=== PATIENT | female | born 2000 | race African-American/Black ===

== ENCOUNTER 2019-12-18 02:50 | Emergency (ER) | payer BC, MEDICAID, SELFPAY ==
[2019-12-18] VITALS (12 sets, daily range): BP systolic 119–153; BP diastolic 70–99; PULSE 90–129; RESP 17–31; TEMP 37.1; O2SAT 98–100
[2019-12-18 03:17] LABS: Basophils Percent Auto 0.6 % (0.2-1.2); Eosinophils Absolute Auto 0.1 K/mm3 (0-0.3); Hematocrit 41.7 % (37.0-47.0); Hemoglobin 13.5 g/dL (12.0-15.0); Lymphocytes Absolute Auto 2.08 K/mm3 (0.9-3.2); Lymphocytes Percent Auto 42.5 % (18.3-44.2); Mean Corpuscular HGB Conc 32.4 g/dl (32-36); Mean Corpuscular Volume 89.5 fl (80-100); Mean Platelet Volume 8.8 fl (7.4-10.4); Monocytes Absolute Auto 0.6 K/mm3 (0.1-0.6); Monocytes Percent Auto 11.9 % (2.6-8.5); Neutrophils Absolute Auto 2.2 K/mm3 (1.3-6.7); Platelet Count Result 302 k/mm3 (150-375); Red Blood Count 4.66 M/mm3 (4.2-5.4); Red Cell Distribution Width 12.6 % (11.5-14.5); White Blood Count 4.9 K/mm3 (4.5-10.0)
[2019-12-18 03:30] LABS: Alanine Aminotransferase 9 U/L (4-35); Albumin Level 4.2 g/dL (3.5-5.1); Alkaline Phosphatase 98 U/L (38-126); Anion Gap 8 mmol/L (8-16); Aspartate Amino Transferase 20 U/L (14-36); Bilirubin,Total 0.3 mg/dL (0.2-1.3); Blood Urea Nitrogen 9 mg/dL (7-17); Calcium 9.3 mg/dL (8.4-10.2); Carbon Dioxide 28 mmol/L (22-30); Chloride 103 mmol/L (98-107); Estimated CRCL calculation 124 ml/min; Estimated Glomerular Filt Rate > 60; Glucose 97 mg/dL (65-105); Potassium 3.9 mmol/L (3.4-5.0); Sodium 139 mmol/L (137-145)
--- NOTE | 2019-12-18 03:46 | PC.NURSE ---
spoke with Sammi BLAIR with the [facility] Poison control---Reports that Sertraline peaks in 4.5-8.5 hours. Side effects Tachycardia, GI upset, Hypertension and slim chance of seizures. Dr Mercado is aware
[2019-12-18 03:48] LABS: Acetaminophen < 10 ug/mL (10-30); Salicylate < 1.0 mg/dL (2-20)
[2019-12-18 03:51] LABS: Ethanol < 10 mg/dL (<10)
--- NOTE | 2019-12-18 03:58 | ED.PSYCH ---
HPI - Psych General Chief Complaint: Psychiatric Symptoms Stated Complaint: SI History of Present Illness HPI Narrative: Patient is a 19-year-old female who presents ER with suicidal ideation with attempted overdose. Patient took 20 tablets of 100 mg sertraline at approximately 1 AM. She reports she wants to kill herself because she misses her grandfather who 2 years ago and there is no reason to go on. No other stressors or events that occurred to make her want to kill herself today. Patient has not attempted to take her own life in the past. Reports she has been planning to take her own life recently. Related Data Home Medications Medication Instructions Recorded Confirmed No Home Medications 12/18/19 12/18/19 Allergies Allergy/AdvReac Type Severity Reaction Status Date / Time shellfish derived Allergy Anaphylaxis Verified 12/18/19 04:27 Review of Systems Review of Systems: All systems reviewed & are unremarkable except as noted in HPI and below Constitutional: Constitutional: Denies chills and Denies fever(s) ENT: Denies nasal congestion and Denies sore throat Cardiovascular: Cardiovascular: Denies chest pain, Denies rapid heart rate and Denies radiating jaw, neck or arm pain Respiratory: Respiratory: Denies cough and Denies dyspnea Psychiatric: Psychiatric: Denies anxiety, Reports depression, Denies homicidal ideation and Reports suicidal ideation PMFSH Past Medical History Medical History (Updated 12/18/19 @ 06:52 by Rogers Mercado MD) Depression Surgical History Surgical History (Updated 12/18/19 @ 04:11 by Rogers Mercado MD) No history of previous surgery Social History Social History (Updated 12/18/19 @ 04:11 by Rogers Mercado MD) Smoking status: Never smoker Gender identity (if verbalized by the patient): Female Exam Narrative: Exam Narrative: GENERAL: Well-appearing, well-nourished, and in no acute distress. HEAD: Normocephalic, atraumatic. ENT: Mucous membranes moist. CHEST: Clear to auscultation. No respiratory distress. HEART: Regular rate and rhythm. Normal peripheral pulses. ABDOMEN: Soft, nontender, nondistended. EXTREMITIES: Normal range of motion. No edema. SKIN: Warm, dry, no rash. NEURO: Alert and oriented x3. PSYCH: Depressed and endorsing suicidal ideation. Course Course Emergency Course: Admit to hospitalist service with critical care consulting. Patient had one episode of dry heaving that resolved with Phenergan. Patient having resting tachycardia while asleep up into the 130s. Vital Signs Vital signs: Vital Signs Temperature 98.7 F 12/18/19 02:48 Pulse Rate 100 12/18/19 02:48 Respiratory Rate 17 12/18/19 02:48 Blood Pressure 142/92 H 12/18/19 02:48 Pulse Oximetry 100 12/18/19 02:48 Temperature 98.7 F 12/18/19 02:48 Pulse Rate 113 H 12/18/19 06:06 Respiratory Rate 24 H 12/18/19 06:06 Blood Pressure 132/86 12/18/19 06:06 Pulse Oximetry 100 12/18/19 06:06 MDM - Psych Lab Data Result diagrams: 12/18/19 03:13 12/18/19 03:12 Labs: Lab Results 12/18/19 12/18/19 12/18/19 Range/Units 03:12 03:12 03:12 WBC (4.5-10.0) K/mm3 RBC (4.2-5.4) M/mm3 Hgb (12.0-15.0) g/dL Hct (37.0-47.0) % MCV (80-100) fl MCH (26-34) pg MCHC (32-36) g/dl RDW (11.5-14.5) % Plt Count (150-375) k/mm3 MPV (7.4-10.4) fl Immature Gran % (Auto) (0-0.5) % Neut % (Auto) (45.5-73.1) % Lymph % (Auto) (18.3-44.2) % [place] % (Auto) (2.6-8.5) % Eos % (Auto) (0-4.4) % Baso % (Auto) (0.2-1.2) % Lymph # (Auto) (0.9-3.2) K/mm3 [place] # (Auto) (0.1-0.6) K/mm3 Eos # (Auto) (0-0.3) K/mm3 Baso # (Auto) (0.0-0.1) K/mm3 Abs Immat Gran (auto) (0.00-0.031) K/mm3 Absolute Neuts (auto) (1.3-6.7) K/mm3 Absolute Nucleated RBC (0.0-0.012) K/mm3 Nucleated RBC % (0.0-0.2) % Sodium 139 (137-145) m
[2019-12-18 04:15] LABS: Add Urine Microscopic? YES; Amorphous Sediment Urine Few; Appearance Urine Cloudy (Clear); Bacteria Urine Trace /hpf; Bilirubin Urine Negative (Negative); Blood Urine 1+ (Negative); Color Urine Yellow (Yellow); Glucose Urine UA Negative (Negative); Ketones Urine Negative (Negative); Leukocyte Esterase Ur 3+ LEU/UL (Negative); Mucus Urine Rare /lpf; Nitrate Urine Negative (Negative); Protein Urine Negative (Negative); Specific Grav Ur 1.019 (1.001-1.035); Squamous Epithelial Cell Urine Many /hpf (Few)
[2019-12-18 04:25] LABS: Amphetamine Screen Urine Negative (Negative); Barbiturate Screen Urine Negative (Negative); Benzodiazepines Screen Urine Negative (Negative); Cannabinoid Screen Urine Positive (Negative); Cocaine Screen Urine Negative (Negative); Methadone Screen Urine Negative (Negative); Opiate Screen Urine Negative (Negative); Phencyclidine Screen Urine Negative (Negative)
[2019-12-18] MEDS: SODIUM CHLORIDE 0.9% IV 1,000 ML 999 ML IV CONT (04:27)
[2019-12-18] MEDS: PROMETHAZINE HCL 25 MG/ML AMPUL 12.5 MG IV PUSH ×2 (04:28→13:57)
--- NOTE | 2019-12-18 06:18 | PC.NURSE ---
Poison control -Sammi BLAIR updated on patient
--- NOTE | 2019-12-18 06:19 | ECG_ITS ---
Measurements Intervals [place] Rate: 116 P: 57 OR: 129 QRS: 38 QRSD: 79 T: -18 QT: 290 QTc: 403 Interpretive Statements SINUS TACHYCARDIA BORDERLINE ST-T WAVE ABNORMALITY- INFERIOR LEADS ABNORMAL ECG Electronically Signed On 12-18-2019 6:51:26 CDT by Anthony Mackay D.O.
--- NOTE | 2019-12-18 06:45 | PC.NURSE ---
Breakfast tray ordered
--- NOTE | 2019-12-18 07:06 | PC.NURSE ---
Report to oncoming shift ROSSY Peraza
--- NOTE | 2019-12-18 09:56 | PC.NURSE ---
Poison Controlled called for update, poison control states that based on EKG that they feel patient is stable at this time and they will contact the hospital later for further follow up.
[2019-12-18] MEDS: SODIUM CHLORIDE 0.9% IV 1,000 ML 125 ML IV CONT (13:56)
--- NOTE | 2019-12-18 14:07 | PM.IMHP ---
H&P: HPI History of Present Illness Date/Time: 12/18/19 14:07 Chief complaint: SI Narrative: Nedra Odom is a 19 year old female Who has been dealing with depression and anxiety for at least 3 years. The patient has been on different types of medications. The patient said that she had a situation last night that she did not want to talk about said that she had a lot of stuff going on with family and other things in her life. She has a roommate but stated room a really does not know her that well. The patient has been on Zoloft for quite some time and she said that she is having difficulty sleeping. She said that she has tried many things before and has not been able to sleep. She states that her mind is racing and she cannot child off at night. She does not see a psychiatrist. The patient stated that she intentionally took 20 tablets of her sertraline 100 mg. She tells me that this was of suicide attempt and then she felt better after she took all the pills. She regretted taking those pills. patient's EKG was read as sinus tachycardia. The patient stated that she feels quite anxious at this time. Patient was positive for cannabis. She states that she does occasionally use marijuana for her anxiety and that helps her sleep. Patient's urine has 3+ leukocytes size Estrace but many squamous cells I believe this is a contaminant I am not going to treat her with antibiotics at this time. A urine culture was sent. Patient is being admitted as observation to the intensive care unit. Date of service 12/18/19. the patient told the ER physician that she misses her grandfather 2 years ago. And there was no reason to go on. Review of Systems Review of Systems: All systems reviewed & are unremarkable except as noted in HPI and below Constitutional: Constitutional: Reports as per HPI and Reports no additional constitutional complaints Eyes: Eyes: Reports as per HPI and Reports no additional eye complaints ENT: Reports system reviewed and no additional complaints, except as documented and Reports Normal hearing present Cardiovascular: Cardiovascular: Reports no additional cardiovascular complaints Respiratory: Respiratory: Reports no additional respiratory complaints and Reports no additional respiratory complaints Gastrointestinal: Gastrointestinal: Reports as per HPI and Reports no additional gastrointestinal complaints Musculoskeletal: Musculoskeletal: Reports no additional musculoskeletal complaints Integumentary/Breasts: Skin/Breast: Reports system reviewed and no additional complaints, except as docu and Reports as per HPI Neurologic: Reports system reviewed and no additional complaints, except as documented, Reports as per HPI and Reports Normal hearing present Psychiatric: Psychiatric: Reports no additional psychiatric complaints and Reports as per HPI Endocrine: Endocrine: Reports no additional endocrine complaints Hematologic/Lymphatic: Hematologic/Lymphatic: Reports no additional hematologic/lymphatic complaints Allergic/Immunologic: Allergic/Immunologic: Reports no additional allergic/immunologic complaints PMFSH Past Medical History Medical History (Updated 12/18/19 @ 14:15 by Shirley Arvizu NP) Anxiety Depression Surgical History Surgical History (Updated 12/18/19 @ 04:11 by Rogers Mercado MD) No history of previous surgery Family History Family History (Updated 12/18/19 @ 14:16 by Shirley Arvizu NP) Father Hypertension Father Hypertension Sibling Hypertension Social History Social History (Updated 12/18/19 @ 14:24 by Shirley Arvizu NP) Social History: The patient lives with a roommate. 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 She is majoring in psychology. She has no children and she is single. She does not have a durable power trust and estates attorney for healthcare. She is a full code. She is a lifelong n
--- NOTE | 2019-12-18 15:42 | PC.NURSE ---
Patient declined by S[facility]MYA at this time.
--- NOTE | 2019-12-18 16:17 | PC.NURSE ---
Patient dinner tray ordered at this time.
--- NOTE | 2019-12-18 21:30 | PC.NURSE ---
faxed requested documents to [facility].
--- NOTE | 2019-12-19 00:45 | PC.NURSE ---
called [facility] to requesta transport. ETA [id number]
[2019-12-19 02:44] VITALS: BP 128/86; PULSE 78; RESP 16; TEMP 36.9; O2SAT 100
--- NOTE | 2019-12-19 03:25 | PC.NURSE ---
called [facility] at 0325. ETA [phone]
[2019-12-19 05:59] VITALS: BP 128/86; PULSE 89; RESP 20; TEMP 36.9; O2SAT 99
== END 2019-12-19 06:00 ==
PROVIDERS: Emergency Provider Emergency Medicine
DX: T43.222A Poisoning by selective serotonin reuptake inhibitors, intentional self-harm, initial encounter (principal)
CPT/HCPCS: 36415; 80053; 80307; 81001; 81025; 84443; 85025; 87086; 87088; 93005; 96361; 96374; 96376; 99285; J2550; J7030

== ENCOUNTER 2020-05-20 14:12 | Outpatient (CLI) | payer BC, MEDICAID, SELFPAY ==
--- NOTE | ~2020-05-20 | XR_ITS ---
EXAMINATION: XR abdomen/kub 1V INDICATION: Constipation TECHNIQUE: Supine view of the abdomen is obtained. COMPARISON: None FINDINGS: There is a moderate volume of colonic stool. No dilated loops of bowel are evident. There a re 15 degrees of rotatory levoscoliosis of the lumbar spine. Left pelvic calcifications may reflect p hleboliths or bowel content. IMPRESSION: 1. Constipation. Reviewed, dictated and finalized at location A. TH PROMOTION OFFICER IMPRESSION: 1. Constipation.
== END 2020-05-20 14:13 | disposition home or self-care (01) ==
PROVIDERS: PCP Family Medicine; Visit Provider Nurse Practitioner
DX: R10.9 Unspecified abdominal pain (principal); K59.00 Constipation, unspecified
CPT/HCPCS: 74018

== ENCOUNTER → 2020-12-15 02:59 | Outpatient (CLI) | payer BC, MEDICAID, SELFPAY ==
[2020-12-16 01:26] LABS: SARS-CoV-2 RNA PCR Negative
== END ==
PROVIDERS: PCP Family Medicine; Visit Provider Internal Medicine Gastroenterology
DX: Z01.812 Encounter for preprocedural laboratory examination (principal); Z20.822 Contact with and (suspected) exposure to COVID-19
CPT/HCPCS: C9803; U0003; U0005

== ENCOUNTER 2020-12-18 01:54 | Day surgery (SDC) | payer BC, MEDICAID, SELFPAY ==
[2020-12-08 15:34] VITALS: BMI 25.8
[2020-12-18 09:29] VITALS: BP 118/89; PULSE 114; RESP 14; TEMP 36.9; O2SAT 99; BMI 26.5
[2020-12-18] MEDS: LACTATED RINGERS 1,000 ML 150 ML IV CONT (09:45)
--- NOTE | 2020-12-18 09:55 | WPDANESEPPF ---
Anes - Initial Pre Proc Eval Procedure: Operation Date: 12/18/20 10:00 Proposed Procedures p Colonoscopy - Melvin Bowen MD Date/Time: 12/18/20 09:55 Surgeon: Melvin Bowen MD Pre Op Diagnosis: change in bowel habits Patient Data Age: 20 Gender: F Height: 1.63 m Weight: 70.2 kg Last Vital Signs Temp 98.4 F 12/18/20 09:29 Pulse 114 H 12/18/20 09:29 Resp 14 12/18/20 09:29 BP 118/89 12/18/20 09:29 Pulse Ox 99 12/18/20 09:29 Allergies Allergy/AdvReac Type Severity Reaction Status Date / Time shellfish derived Allergy Severe Anaphylaxis Verified 12/18/20 09:28 Home Medications Medication Instructions Recorded Confirmed Type bupropion HCl (smoking deter) 150 150 mg PO DAILY tablet 03/09/20 12/18/20 History mg tablet,12 hr sustained-release(smoking deterrent) quetiapine 200 mg tablet 200 mg PO DAILY tablet 03/09/20 12/18/20 History quetiapine 50 mg tablet 50 mg PO DAILY tablet 04/08/20 12/18/20 History human papillomav vac,9-raymundo(PF) 0.5 0.5 ml IM ONCE #0.5 ml 04/23/20 12/18/20 Rx mL IM suspension docusate sodium 100 mg capsule 100 mg PO DAILY #30 cap 05/20/20 12/18/20 Rx albuterol sulfate 90 mcg/actuation 1 inh INHALATION Q4H PRN #6.7 g 05/22/20 12/18/20 Rx aerosol inhaler triamcinolone acetonide 0.1 % 1 applic TOPICAL BID #30 g 08/28/20 12/18/20 Rx topical ointment linaclotide 290 mcg capsule 290 mcg PO DAILY #30 cap 09/29/20 12/18/20 Rx norethindrone 1 mg-ethinyl 1 tablet PO DAILY #84 tablet 10/20/20 12/18/20 Rx estradiol 20 mcg (21)-iron 75 mg (7) tablet doxepin 100 mg PO HS 12/08/20 12/18/20 History multivitamin 1 tablet PO DAILY 12/08/20 12/18/20 History Patient hx anesthesia problems: none Family hx anesthesia problems: none Results Review: All pre-operative results and documents have been reviewed as part of the pre-operative evaluation. [facility] Past Medical History Medical History (Updated 12/15/20 @ 08:35 by Rita Ryder NP) Anxiety Asthma Atypical squamous cells of undetermined significance (ASC-US) on cervical Pap smear Depression History of chlamydia HPV test positive Surgical History Surgical History (Updated 12/15/20 @ 08:08 by Amy Escalona [facility]) No history of previous surgery [place] teeth extracted Family History Family History Father Hypertension Father Hypertension Sibling Hypertension Grandparent Diabetes mellitus Mother Hypertension Social History Social History Social History: The patient lives with a roommate. 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 She is majoring in psychology. She has no children and she is single. She does not have a durable power immigration attorney for healthcare. She is a full code. She is a lifelong nonsmoker and only drinks socially. She does use marijuana to self medicate for anxiety and depression. Smoking status: Never smoker Alcohol intake: current Substance use: current Substance use type: marijuana Living arrangements: with roommate(s) Additional occupation/education comments: And she also works. Gender identity (if verbalized by the patient): Female Spiritual care concerns: No Anes - Eval Final PreProcedure Day of Procedure 12/18/20 09:55 Patient weight: normal Heart: regular rate and rhythm Lungs: clear to auscultation Airway: Mallampati scale class II Neurological: alert and oriented Last oral intake: >/= 8 hours ASA classification: II Emergent: no Anesthetic plan: proceed Anesthesia type and monitoring: general GIVS and standard monitoring Results Review: All pre-operative results and documents have been reviewed as part of the pre-operative evaluation. Informed Consent: The patient's anesthetic plan and its attendant risks and benefits were discussed with the patient/f
--- NOTE | 2020-12-18 09:58 | PM.HPGS ---
History of Present Illness History of Present Illness Consent: Risks, benefits, and alternatives have been discussed and questions answered. Patient agrees to proceed with procedure. Chief complaint: change in bowel habits Narrative: Nedra Odom is a 20 year old female with a significant change in bowel habits. She has become very constipated. She has tried MiraLax, Linzess, fiber gummies, without much success Review of Systems Review of Systems: All systems reviewed & are unremarkable except as noted in HPI and below PMFSH Past Medical History Medical History Anxiety Asthma Atypical squamous cells of undetermined significance (ASC-US) on cervical Pap smear Depression History of chlamydia HPV test positive Surgical History Surgical History No history of previous surgery [place] teeth extracted Family History Family History Father Hypertension Father Hypertension Sibling Hypertension Grandparent Diabetes mellitus Mother Hypertension Social History Social History Social History: The patient lives with a roommate. 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 She has no children and she is single. She does not have a durable power patent prosecution attorney for healthcare. She is a full code. She is a lifelong nonsmoker and only drinks socially. She does use marijuana to self medicate for anxiety and depression. Smoking status: Never smoker Alcohol intake: current Substance use: current Substance use type: marijuana Living arrangements: with roommate(s) Additional occupation/education comments: And she also works. Gender identity (if verbalized by the patient): Female Spiritual care concerns: No Meds Home Medications and Allergies Home Medications Medication Instructions Recorded Confirmed Type bupropion HCl (smoking deter) 150 150 mg PO DAILY tablet 03/09/20 12/18/20 History mg tablet,12 hr sustained-release(smoking deterrent) quetiapine 200 mg tablet 200 mg PO DAILY tablet 03/09/20 12/18/20 History quetiapine 50 mg tablet 50 mg PO DAILY tablet 04/08/20 12/18/20 History human papillomav vac,9-raymundo(PF) 0.5 0.5 ml IM ONCE #0.5 ml 04/23/20 12/18/20 Rx mL IM suspension docusate sodium 100 mg capsule 100 mg PO DAILY #30 cap 05/20/20 12/18/20 Rx albuterol sulfate 90 mcg/actuation 1 inh INHALATION Q4H PRN #6.7 g 05/22/20 12/18/20 Rx aerosol inhaler triamcinolone acetonide 0.1 % 1 applic TOPICAL BID #30 g 08/28/20 12/18/20 Rx topical ointment linaclotide 290 mcg capsule 290 mcg PO DAILY #30 cap 09/29/20 12/18/20 Rx norethindrone 1 mg-ethinyl 1 tablet PO DAILY #84 tablet 10/20/20 12/18/20 Rx estradiol 20 mcg (21)-iron 75 mg (7) tablet doxepin 100 mg PO HS 12/08/20 12/18/20 History multivitamin 1 tablet PO DAILY 12/08/20 12/18/20 History Allergies Allergy/AdvReac Type Severity Reaction Status Date / Time shellfish derived Allergy Severe Anaphylaxis Verified 12/18/20 09:28 Vital Signs Vital Signs - 24 hr 12/18/20 09:29 Temperature 36.9 C Pulse Rate 114 H Respiratory Rate 14 Blood Pressure 118/89 Pulse Oximetry 99 Exam Resp: Auscultation: clear to auscultation bilaterally Cardio: Rate: regular rate Rhythm: regular rhythm GI: GI Palp: Yes Soft to palpation and No Tenderness to palpation present (GI) Assessment and Plan Assessment and plan (1) Constipation: Code(s): K59.00 - Constipation, unspecified Status: Acute Assessment and Plan: Colonoscopy with possible biopsy or polypectomy or cautery or injection of substances.
[2020-12-18] MEDS: SIMETHICONE ORAL SUSPENSION 20 MG/0.3 ML 30 ML BOTTLE 0.6 ML IRRIGATION (10:14)
[2020-12-18 10:24] VITALS: BP 103/66; PULSE 88; RESP 21; O2SAT 100
[2020-12-18 10:34] VITALS: BP 112/70; PULSE 90; RESP 21; O2SAT 100
[2020-12-18 10:44] VITALS: BP 115/72; PULSE 86; RESP 24; O2SAT 100
== END 2020-12-18 12:00 | disposition home or self-care (01) ==
PROVIDERS: PCP Family Medicine; Visit Provider Internal Medicine Gastroenterology
PROC: 0DJD8ZZ Inspection of Lower Intestinal Tract, Via Natural or Artificial Opening Endoscopic (ICD-10-PCS; CPT 45378; principal; 2020-12-18 10:00)
DX: K59.00 Constipation, unspecified (principal); J45.909 Unspecified asthma, uncomplicated; F41.8 Other specified anxiety disorders; R87.610 Atypical squamous cells of undetermined significance on cytologic smear of cervix (ASC-US); F12.90 Cannabis use, unspecified, uncomplicated; Z79.51 Long term (current) use of inhaled steroids
CPT/HCPCS: 45378; J2704; J7120

== ENCOUNTER 2021-01-21 15:03 | Outpatient (CLI) | payer BC, MEDICAID, SELFPAY ==
[2021-01-21 15:58] LABS: Beta HCG Quantitative < 2.39 mIU/ML
[2021-01-26 07:28] LABS: FSH <0.7 mIU/mL (***); LH <0.2 mIU/mL (***); Progesterone 0.2 ng/mL (***)
== END 2021-01-21 15:04 | disposition home or self-care (01) ==
LOC: ANHLAB 15:06
PROVIDERS: PCP Family Medicine; Visit Provider Obstetrics & Gynecology
DX: N92.1 Excessive and frequent menstruation with irregular cycle (principal)
CPT/HCPCS: 36415; 83001; 83002; 84144; 84436; 84443; 84702